=== PATIENT | male | born 1995 ===

== ENCOUNTER 2019-12-06 12:06 | Emergency (ER) | payer BC, SELFPAY ==
[2019-12-06 12:10] VITALS: BP 160/93; PULSE 99; RESP 15; TEMP 37.1; O2SAT 96; BMI 27.8
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
[2019-12-06] MEDS: IBUPROFEN 400 MG TABLET 800 MG PO (12:59)
[2019-12-06 14:47] VITALS: BP 143/76; PULSE 71; RESP 16; O2SAT 99
== END 2019-12-06 14:54 | disposition home or self-care (01) ==
PROVIDERS: Emergency Provider Nurse Practitioner Family
DX: I10 Essential (primary) hypertension (principal); S52.124A Nondisplaced fracture of head of right radius, initial encounter for closed fracture; S63.501A Unspecified sprain of right wrist, initial encounter; V86.56XA Driver of dirt bike or motor/cross bike injured in nontraffic accident, initial encounter
CPT/HCPCS: 29105; 73080; 73110; 99283; 99284